=== PATIENT | male | born 1940 | race Caucasian/White ===

== ENCOUNTER 2021-06-06 09:43 | Inpatient (IN) | payer OTHER ==
[2021-06-06] VITALS (43 sets, daily range): BP systolic 83–127; BP diastolic 45–74
[~2021-06-06] VITALS: Ht 172.7 cm; Wt 90.0 kg
[2021-06-06] MEDS ORDERED: SODIUM CHLORIDE 0.9% 1,000 ML IVB ONE (10:00)
[2021-06-06 10:36] LABS: Basophils # (auto) 0.1 10 ^3/uL (0-0.2); Basophils % (auto) 0.9 % (0.0-2.0); Monocytes # (auto) 0.7 10 ^3/uL (0-1.3); Neutrophils # (auto) 6.4 10 ^3/uL (1.6-8.6); Nucleated Red Blood Cells % 0.1 %; White Blood Cell 7.8 10^3/uL (4.4-10.8)
[2021-06-06 10:38] LABS: Eosinophils # (auto) 0.2 10 ^3/uL (0-0.8); Hematocrit 18.5 % (41.0-53.0); Lymphocytes # (auto) 0.4 10 ^3/uL (0.4-5.4); Lymphocytes % (auto) 5.3 % (10.0-50.0); Mean Corpuscular Hemoglobin 28.2 pg (28.0-32.0); Mean Corpuscular Volume 88.4 fL (80.0-100.0); Monocytes % (auto) 9.5 % (0.0-12.0); Neutrophils % (auto) 82.3 % (37.0-80.0); Red Blood Cells 2.09 10^6/uL (4.5-5.90)
[2021-06-06 10:48] LABS: Hemoglobin 5.9 g/dL (13.5-17.5); Red Cell Distribution Width 20.5 % (11.8-14.3)
[2021-06-06 10:51] LABS: INR 2.56 (0.9-1.15)
[2021-06-06 10:55] LABS: BUN/Creatinine Ratio 18.6
[2021-06-06 11:03] LABS: Potassium 2.8 mmol/L (3.5-5.1)
[2021-06-06] MEDS ORDERED: MORPHINE SULFATE INJECTION 2 MG/ML SYRG IV PRN ×2 (13:15→13:45)
[2021-06-06] MEDS ORDERED: NITROGLYCERIN 0.4 MG SL TAB SL PRN (13:15)
[2021-06-06] MEDS ORDERED: SODIUM CHLORIDE 0.9% 250 ML IV ONE (13:45)
[2021-06-06] MEDS ORDERED: ACETAMINOPHEN 325 MG TAB PO PRN (13:45)
[2021-06-06] MEDS ORDERED: ONDANSETRON HCL 4 MG/2 ML VIAL IV PRN (13:45)
[2021-06-06] MEDS ORDERED: hydrALAZINE HCL 20 MG/ML VL IV PRN (13:45)
[2021-06-06] MEDS ORDERED: DOCUSATE SOD 100 MG CAP PO PRN (13:45)
[2021-06-06] MEDS ORDERED: PANTOPRAZOLE 40 MG/10 ML VIAL INJ IV ONE (13:45)
[2021-06-06] MEDS: DOBUTamine 1000MCG/ML 250 ML IV SCH (13:45)
[2021-06-06 14:27] LABS: Magnesium 2.5 mg/dL (1.6-2.6); Phosphorus 5.1 mg/dL (2.5-4.90)
[2021-06-06] MEDS: NOREPINEPHRINE 8 MG/250ML KIT 250 ML IV SCH (14:45)
[2021-06-06] MEDS: POTASSIUM CHL 20MEQ/100ML 100 ML IV SCH ×3 (15:04→21:09)
[2021-06-06] MEDS ORDERED: MAGNESIUM SULFATE 1GM/100ML 100 ML IV ONE (16:00)
[2021-06-06 16:26] LABS: INR 2.41 (0.9-1.15)
[2021-06-06 17:05] LABS: Partial Thromboplastin Time 97.8 sec (23.6-33.0)
[2021-06-06] MEDS ORDERED: INSUINJ2 SC (20:26)
[2021-06-06] MEDS ORDERED: FURO1TAB31 PO (20:26)
[2021-06-06] MEDS ORDERED: CYA100I SL (20:26)
[2021-06-06] MEDS ORDERED: FLUO-126 PO (20:26)
[2021-06-06] MEDS ORDERED: ROSU40TA PO (20:26)
[2021-06-06] MEDS ORDERED: DOCU100T15 PO (20:26)
[2021-06-06] MEDS ORDERED: MID10T PO (20:26)
[2021-06-06] MEDS ORDERED: APIX5TAB PO (20:26)
[2021-06-06] MEDS ORDERED: ALBUAER3 IN (20:26)
[2021-06-06] MEDS ORDERED: FERR-20 PO (20:26)
[2021-06-06] MEDS ORDERED: TRAZ50TA2 PO (20:26)
[2021-06-06] MEDS ORDERED: MIRT1TAB38 PO (20:26)
[2021-06-06] MEDS ORDERED: BISO5TAB44 PO (20:26)
[2021-06-06] MEDS ORDERED: NITR0.4S29 SL (20:26)
[2021-06-06] MEDS ORDERED: POTA-180 PO (20:26)
[2021-06-06] MEDS ORDERED: ACET30TA15 PO (20:26)
[2021-06-06] MEDS ORDERED: OMEP20TA PO (20:26)
[2021-06-06] MEDS ORDERED: OMNIPAQUE ORAL SOLN 500ml 12mg/ml PO ONE (21:03)
[2021-06-06] MEDS: PANTOPRAZOLE 40 MG/10 ML VIAL INJ IV SCH (21:50)
[2021-06-06] MEDS ORDERED: ATORVASTATIN 20 MG TAB PO SCH (22:00)
[2021-06-06] MEDS: HYDROcodone-ACET 5/325MG TAB PO PRN (23:19)
[2021-06-07] VITALS (84 sets, daily range): BP systolic 76–131; BP diastolic 18–81
[2021-06-07 00:34] LABS: Urine Bacteria FEW /hpf (None Seen); Urine Blood Negative /uL (Negative); Urine Hyaline Cast FEW /lpf (0 - 2); Urine Specific Gravity 1.012 (1.001-1.035); Urine WBC 2 /hpf (0 - 3)
[2021-06-07] MEDS: DOBUTamine 1000MCG/ML 250 ML IV SCH ×2 (03:17→17:49)
[2021-06-07 04:34] LABS: Basophils # (auto) 0 10 ^3/uL (0-0.2); Lymphocytes # (auto) 0.3 10 ^3/uL (0.4-5.4); Monocytes # (auto) 0.4 10 ^3/uL (0-1.3); Neutrophils # (auto) 4.6 10 ^3/uL (1.6-8.6); White Blood Cell 5.4 10^3/uL (4.4-10.8)
[2021-06-07 04:36] LABS: Basophils % (auto) 0.5 % (0.0-2.0); Eosinophils # (auto) 0.1 10 ^3/uL (0-0.8); Eosinophils % (auto) 2.4 % (0.0-7.0); Hematocrit 20.9 % (41.0-53.0); Lymphocytes % (auto) 5.3 % (10.0-50.0); Mean Corpuscular Hemoglobin 28.9 pg (28.0-32.0); Mean Corpuscular Hgb Conc. 31.8 g/dL (32.0-36.0); Mean Corpuscular Volume 90.7 fL (80.0-100.0); Monocytes % (auto) 7.9 % (0.0-12.0); Neutrophils % (auto) 83.9 % (37.0-80.0); Red Cell Distribution Width 18.9 % (11.8-14.3)
[2021-06-07 04:52] LABS: INR 1.77 (0.9-1.15); Partial Thromboplastin Time 59.5 sec (23.6-33.0)
[2021-06-07 05:16] LABS: Hemoglobin 6.7 g/dL (13.5-17.5)
[2021-06-07 05:20] LABS: BUN/Creatinine Ratio 19.9
[2021-06-07 05:21] LABS: Albumin 2.5 g/dL (3.4-5.0); Bilirubin, Total 1.3 mg/dL (0.2-1.0); Calcium 7.8 mg/dL (8.5-10.1); Magnesium 2.3 mg/dL (1.6-2.6); Total Protein 5.5 g/dL (6.4-8.2)
[2021-06-07 05:22] LABS: CRP High Sensitivity 7.96 mg/dL (< 0.3)
[2021-06-07 05:23] LABS: Potassium 2.8 mmol/L (3.5-5.1)
[2021-06-07] MEDS: POTASSIUM CHL 20MEQ/100ML 100 ML IV SCH ×2 (06:29→08:53)
[2021-06-07] MEDS: FUROSEMIDE 20 MG/2 ML VIAL IV SCH ×2 (08:15→17:53)
[2021-06-07] MEDS: PANTOPRAZOLE 40 MG/10 ML VIAL INJ IV SCH ×2 (10:29→21:19)
[2021-06-07] MEDS ORDERED: POTASSIUM CHL 20MEQ/100ML 100 ML IV ONE (10:30)
[2021-06-07] MEDS ORDERED: LIDOCAINE VISCOUS 2% 15ML UD ONE (11:01)
[2021-06-07] MEDS ORDERED: diphenhdrAMINE HCL 50 MG/1 ML VL ONE (11:02)
[2021-06-07] MEDS ORDERED: MIDAZOLAM HCL 5 MG/ML-1ML VIAL ONE (11:02)
[2021-06-07] MEDS ORDERED: fentaNYL CITRATE 100 MCG/2 ML VL ONE (11:02)
[2021-06-07 12:09] LABS: Eosinophils # (auto) 0.2 10 ^3/uL (0-0.8); Hemoglobin 7.9 g/dL (13.5-17.5); Lymphocytes # (auto) 0.3 10 ^3/uL (0.4-5.4); Mean Corpuscular Volume 87.4 fL (80.0-100.0); Monocytes # (auto) 0.6 10 ^3/uL (0-1.3); Neutrophils # (auto) 5.2 10 ^3/uL (1.6-8.6); Nucleated Red Blood Cells % 0.1 %; White Blood Cell 6.2 10^3/uL (4.4-10.8)
[2021-06-07 12:11] LABS: Basophils # (auto) 0 10 ^3/uL (0-0.2); Basophils % (auto) 0.6 % (0.0-2.0); Eosinophils % (auto) 2.7 % (0.0-7.0); Hematocrit 23.8 % (41.0-53.0); Lymphocytes % (auto) 4.4 % (10.0-50.0); Mean Corpuscular Hemoglobin 28.9 pg (28.0-32.0); Mean Corpuscular Hgb Conc. 33.1 g/dL (32.0-36.0); Monocytes % (auto) 9.4 % (0.0-12.0); Neutrophils % (auto) 82.9 % (37.0-80.0); Red Blood Cells 2.72 10^6/uL (4.5-5.90); Red Cell Distribution Width 17.8 % (11.8-14.3)
[2021-06-07 12:22] LABS: INR 1.73 (0.9-1.15)
[2021-06-07] MEDS: NOREPINEPHRINE 8 MG/250ML KIT 250 ML IV SCH (14:45)
[2021-06-07] MEDS ORDERED: DEXTROSE (50%) 50ML SYRG IV PRN (14:45)
[2021-06-07 17:16] LABS: Hemoglobin 7.7 g/dL (13.5-17.5)
[2021-06-07 17:19] LABS: Hematocrit 23.6 % (41.0-53.0)
[2021-06-07] MEDS: InsuLIN REG 1unit/0.01ml Soln (100units/ml) SC SCH ×2 (17:59→23:53)
[2021-06-07] MEDS: ACCU-CHEK COMFORT CURVE STRIP VI SCH ×2 (17:59→23:52)
[2021-06-08] VITALS (70 sets, daily range): BP systolic 81–125; BP diastolic 50–86
[2021-06-08] MEDS: DOBUTamine 1000MCG/ML 250 ML IV SCH (03:18)
[2021-06-08 04:17] LABS: Basophils # (auto) 0 10 ^3/uL (0-0.2); Eosinophils # (auto) 0.1 10 ^3/uL (0-0.8); Hemoglobin 7.5 g/dL (13.5-17.5); Mean Corpuscular Volume 87.7 fL (80.0-100.0); Monocytes # (auto) 0.3 10 ^3/uL (0-1.3); Neutrophils # (auto) 3.4 10 ^3/uL (1.6-8.6); Nucleated Red Blood Cells % 0.1 %; White Blood Cell 4.1 10^3/uL (4.4-10.8)
[2021-06-08 04:19] LABS: Basophils % (auto) 0.5 % (0.0-2.0); Eosinophils % (auto) 2.5 % (0.0-7.0); Hematocrit 22.4 % (41.0-53.0); Lymphocytes # (auto) 0.2 10 ^3/uL (0.4-5.4); Lymphocytes % (auto) 5.9 % (10.0-50.0); Mean Corpuscular Hemoglobin 29.4 pg (28.0-32.0); Mean Corpuscular Hgb Conc. 33.5 g/dL (32.0-36.0); Neutrophils % (auto) 83.1 % (37.0-80.0); Red Blood Cells 2.55 10^6/uL (4.5-5.90); Red Cell Distribution Width 17.8 % (11.8-14.3)
[2021-06-08 04:32] LABS: INR 1.54 (0.9-1.15); Partial Thromboplastin Time 55.3 sec (23.6-33.0)
[2021-06-08 04:33] LABS: BUN/Creatinine Ratio 17.1; Potassium 3.4 mmol/L (3.5-5.1)
[2021-06-08] MEDS: ACCU-CHEK COMFORT CURVE STRIP VI SCH ×3 (05:57→17:42)
[2021-06-08] MEDS: FUROSEMIDE 20 MG/2 ML VIAL IV SCH ×2 (05:57→17:52)
[2021-06-08] MEDS: InsuLIN REG 1unit/0.01ml Soln (100units/ml) SC SCH ×4 (05:57→23:48)
[2021-06-08] MEDS ORDERED: SODIUM CHLORIDE LOCK 10 ML ONE (07:42)
[2021-06-08] MEDS ORDERED: FLUMAZENIL 0.1 MG/ML INJ 10ML MDV IV ONE (07:42)
[2021-06-08] MEDS ORDERED: NALOXONE HCL 0.4 MG/ML VIAL ONE (07:42)
[2021-06-08] MEDS ORDERED: MIDAZOLAM HCL 5 MG/ML-1ML VIAL ONE (07:42)
[2021-06-08] MEDS ORDERED: LIDOCAINE VISCOUS 2% 15ML UD ONE (07:42)
[2021-06-08] MEDS ORDERED: diphenhdrAMINE HCL 50 MG/1 ML VL ONE (07:43)
[2021-06-08] MEDS ORDERED: fentaNYL CITRATE 100 MCG/2 ML VL ONE (07:43)
[2021-06-08] MEDS: PANTOPRAZOLE 40 MG/10 ML VIAL INJ IV SCH ×2 (10:19→20:55)
[2021-06-08] MEDS: NOREPINEPHRINE 8 MG/250ML KIT 250 ML IV SCH (13:44)
[2021-06-08] MEDS: HYDROcodone-ACET 5/325MG TAB PO PRN (13:45)
[2021-06-08] MEDS ORDERED: SUCRALFATE 1 GM TAB PO ONE (14:15)
[2021-06-08] MEDS ORDERED: POTASSIUM CHL 20MEQ/100ML 100 ML IV ONE (14:15)
[2021-06-08] MEDS: SUCRALFATE 1 GM TAB PO SCH ×2 (17:00→20:55)
[2021-06-09] VITALS (30 sets, daily range): BP systolic 83–113; BP diastolic 48–82
[2021-06-09] MEDS: ACCU-CHEK COMFORT CURVE STRIP VI SCH ×5 (00:18→23:59)
[2021-06-09] MEDS: HYDROcodone-ACET 5/325MG TAB PO PRN ×2 (00:25→20:13)
[2021-06-09 03:57] LABS: Basophils # (auto) 0 10 ^3/uL (0-0.2); Eosinophils # (auto) 0.1 10 ^3/uL (0-0.8); Lymphocytes # (auto) 0.3 10 ^3/uL (0.4-5.4); Monocytes # (auto) 0.4 10 ^3/uL (0-1.3); Neutrophils # (auto) 4.1 10 ^3/uL (1.6-8.6)
[2021-06-09 03:59] LABS: Basophils % (auto) 0.7 % (0.0-2.0); Eosinophils % (auto) 2.1 % (0.0-7.0); Hematocrit 22.7 % (41.0-53.0); Hemoglobin 7.4 g/dL (13.5-17.5); Lymphocytes % (auto) 5.8 % (10.0-50.0); Mean Corpuscular Hemoglobin 29.2 pg (28.0-32.0); Mean Corpuscular Hgb Conc. 32.9 g/dL (32.0-36.0); Mean Corpuscular Volume 88.9 fL (80.0-100.0); Monocytes % (auto) 8.8 % (0.0-12.0); Neutrophils % (auto) 82.6 % (37.0-80.0); Nucleated Red Blood Cells % 0.1 %; Red Blood Cells 2.55 10^6/uL (4.5-5.90); Red Cell Distribution Width 17.6 % (11.8-14.3)
[2021-06-09 04:13] LABS: BUN/Creatinine Ratio 17.5; Magnesium 2.6 mg/dL (1.6-2.6); Potassium 3.6 mmol/L (3.5-5.1)
[2021-06-09] MEDS: SUCRALFATE 1 GM TAB PO SCH ×2 (05:07→10:58)
[2021-06-09] MEDS: FUROSEMIDE 20 MG/2 ML VIAL IV SCH ×2 (05:07→18:30)
[2021-06-09] MEDS: InsuLIN REG 1unit/0.01ml Soln (100units/ml) SC SCH ×4 (05:08→23:59)
[2021-06-09] MEDS: PANTOPRAZOLE 40 MG/10 ML VIAL INJ IV SCH ×2 (10:58→21:42)
[2021-06-09] MEDS: METOPROLOL SUCCINATE XL 50 MG TAB PO SCH (10:59)
[2021-06-09] MEDS ORDERED: POTASSIUM CHL 20 Meq TABLET PO ONE (14:15)
[2021-06-09] MEDS ORDERED: FUROSEMIDE 20 MG/2 ML VIAL IV ONE (14:15)
[2021-06-09] MEDS: SUCRALFATE 1 GM/10 ML ORAL SUSP PO SCH ×2 (17:33→21:42)
[2021-06-10] VITALS (37 sets, daily range): BP systolic 73–119; BP diastolic 42–86
[2021-06-10] MEDS: ACCU-CHEK COMFORT CURVE STRIP VI SCH ×4 (05:30→23:29)
[2021-06-10] MEDS: InsuLIN REG 1unit/0.01ml Soln (100units/ml) SC SCH ×4 (05:31→23:30)
[2021-06-10 05:51] LABS: Basophils # (auto) 0.1 10 ^3/uL (0-0.2); Basophils % (auto) 1.4 % (0.0-2.0); Eosinophils # (auto) 0.2 10 ^3/uL (0-0.8); Hematocrit 25.9 % (41.0-53.0); Hemoglobin 8.7 g/dL (13.5-17.5); Lymphocytes # (auto) 0.3 10 ^3/uL (0.4-5.4); Lymphocytes % (auto) 5.9 % (10.0-50.0); Mean Corpuscular Hgb Conc. 33.7 g/dL (32.0-36.0); Mean Corpuscular Volume 89.1 fL (80.0-100.0); Monocytes # (auto) 0.5 10 ^3/uL (0-1.3); Monocytes % (auto) 8.8 % (0.0-12.0); Neutrophils # (auto) 4.2 10 ^3/uL (1.6-8.6); Neutrophils % (auto) 80.9 % (37.0-80.0); Nucleated Red Blood Cells % 0.1 %; Red Cell Distribution Width 17.1 % (11.8-14.3); White Blood Cell 5.1 10^3/uL (4.4-10.8)
[2021-06-10 05:59] LABS: BUN/Creatinine Ratio 17.4; Calcium 8.5 mg/dL (8.5-10.1); Potassium 3.3 mmol/L (3.5-5.1)
[2021-06-10] MEDS: SUCRALFATE 1 GM/10 ML ORAL SUSP PO SCH ×4 (06:30→21:36)
[2021-06-10] MEDS: METOPROLOL SUCCINATE XL 50 MG TAB PO SCH (10:00)
[2021-06-10] MEDS ORDERED: SODIUM CHLORIDE 0.9% 250 ML IV ONE ×2 (11:15→12:45)
[2021-06-10] MEDS ORDERED: POTASSIUM CHLORIDE 8 MEQ TAB PO ONE (11:15)
[2021-06-10] MEDS: PANTOPRAZOLE 40 MG/10 ML VIAL INJ IV SCH ×2 (11:35→21:36)
[2021-06-10 12:47] LABS: Hematocrit 26.4 % (41.0-53.0); Hemoglobin 8.8 g/dL (13.5-17.5)
[2021-06-10] MEDS: NOREPINEPHRINE BITARTRATE 32 MG in SODIUM CHL 0.9% 218 ML IV SCH (14:45)
[2021-06-10] MEDS ORDERED: NOREPINEPHRINE 8 MG/250 ML IV ONE (14:52)
[2021-06-10] MEDS: FUROSEMIDE 20 MG/2 ML VIAL IV SCH (17:24)
[2021-06-10] MEDS: LORazepam 0.5 MG TAB PO PRN (17:24)
[2021-06-11] VITALS (96 sets, daily range): BP systolic 67–138; BP diastolic 37–100
[2021-06-11 04:34] LABS: Basophils # (auto) 0.1 10 ^3/uL (0-0.2); Eosinophils # (auto) 0.3 10 ^3/uL (0-0.8); Eosinophils % (auto) 2.8 % (0.0-7.0); Hematocrit 27.9 % (41.0-53.0); Hemoglobin 9.4 g/dL (13.5-17.5); Lymphocytes # (auto) 0.4 10 ^3/uL (0.4-5.4); Lymphocytes % (auto) 4.8 % (10.0-50.0); Mean Corpuscular Hemoglobin 29.8 pg (28.0-32.0); Mean Corpuscular Hgb Conc. 33.6 g/dL (32.0-36.0); Mean Corpuscular Volume 88.7 fL (80.0-100.0); Monocytes % (auto) 10.5 % (0.0-12.0); Neutrophils # (auto) 7.3 10 ^3/uL (1.6-8.6); Neutrophils % (auto) 80.9 % (37.0-80.0); Red Blood Cells 3.14 10^6/uL (4.5-5.90); Red Cell Distribution Width 17.6 % (11.8-14.3); White Blood Cell 9.1 10^3/uL (4.4-10.8)
[2021-06-11 04:50] LABS: BUN/Creatinine Ratio 17.2; Calcium 8.6 mg/dL (8.5-10.1); Potassium 3.3 mmol/L (3.5-5.1)
[2021-06-11] MEDS: SUCRALFATE 1 GM/10 ML ORAL SUSP PO SCH ×4 (05:53→21:34)
[2021-06-11] MEDS: ACCU-CHEK COMFORT CURVE STRIP VI SCH ×4 (05:54→23:35)
[2021-06-11] MEDS: InsuLIN REG 1unit/0.01ml Soln (100units/ml) SC SCH ×3 (05:54→23:38)
[2021-06-11] MEDS: FUROSEMIDE 20 MG/2 ML VIAL IV SCH ×2 (05:55→17:56)
[2021-06-11] MEDS: METOPROLOL SUCCINATE XL 50 MG TAB PO SCH (10:00)
[2021-06-11] MEDS: PANTOPRAZOLE 40 MG/10 ML VIAL INJ IV SCH ×2 (10:28→21:34)
[2021-06-11] MEDS ORDERED: POTASSIUM CHL 20 Meq TABLET PO ONE (12:00)
[2021-06-11] MEDS: HYDROcodone-ACET 5/325MG TAB PO PRN (14:09)
[2021-06-11] MEDS: NOREPINEPHRINE BITARTRATE 32 MG in SODIUM CHL 0.9% 218 ML IV SCH (17:28)
[2021-06-11] MEDS: FERROUS SULFATE 325mg EC TAB PO SCH (17:56)
[2021-06-11] MEDS: MIDODRINE HCL 10 MG TAB PO SCH (17:56)
[2021-06-11] MEDS: GABAPENTIN 100 MG CAP PO SCH (21:35)
[2021-06-12] VITALS (94 sets, daily range): BP systolic 72–135; BP diastolic 40–91
[2021-06-12] MEDS: LORazepam 0.5 MG TAB PO PRN (01:10)
[2021-06-12 05:06] LABS: Basophils # (auto) 0.1 10 ^3/uL (0-0.2); Basophils % (auto) 1.1 % (0.0-2.0); Eosinophils # (auto) 0.3 10 ^3/uL (0-0.8); Eosinophils % (auto) 3.3 % (0.0-7.0); Hematocrit 28.6 % (41.0-53.0); Hemoglobin 9.3 g/dL (13.5-17.5); Lymphocytes # (auto) 0.6 10 ^3/uL (0.4-5.4); Mean Corpuscular Hgb Conc. 32.4 g/dL (32.0-36.0); Mean Corpuscular Volume 89.5 fL (80.0-100.0); Monocytes # (auto) 0.9 10 ^3/uL (0-1.3); Monocytes % (auto) 9.5 % (0.0-12.0); Neutrophils # (auto) 7.5 10 ^3/uL (1.6-8.6); Neutrophils % (auto) 80.1 % (37.0-80.0); Nucleated Red Blood Cells % 0.1 %; Red Cell Distribution Width 17.8 % (11.8-14.3); White Blood Cell 9.4 10^3/uL (4.4-10.8)
[2021-06-12 05:20] LABS: BUN/Creatinine Ratio 17.3; Calcium 8.4 mg/dL (8.5-10.1); Potassium 3.4 mmol/L (3.5-5.1)
[2021-06-12] MEDS: MIDODRINE HCL 10 MG TAB PO SCH ×2 (05:47→17:47)
[2021-06-12] MEDS: FUROSEMIDE 20 MG/2 ML VIAL IV SCH (05:47)
[2021-06-12] MEDS: ACCU-CHEK COMFORT CURVE STRIP VI SCH ×3 (05:48→17:48)
[2021-06-12] MEDS: InsuLIN REG 1unit/0.01ml Soln (100units/ml) SC SCH ×3 (05:48→17:57)
[2021-06-12] MEDS: SUCRALFATE 1 GM/10 ML ORAL SUSP PO SCH ×4 (05:48→21:27)
[2021-06-12] MEDS: METOPROLOL SUCCINATE XL 50 MG TAB PO SCH (08:37)
[2021-06-12] MEDS: FERROUS SULFATE 325mg EC TAB PO SCH ×2 (08:37→17:47)
[2021-06-12] MEDS: PANTOPRAZOLE 40 MG/10 ML VIAL INJ IV SCH ×2 (08:37→21:27)
[2021-06-12] MEDS ORDERED: BUMETANIDE 2.5mg/10ml (0.25 mg/ml) INJ IV ONE (15:00)
[2021-06-12] MEDS ORDERED: ALPRAZolam 0.25 MG TAB PO PRN (15:15)
[2021-06-12] MEDS ORDERED: POTASSIUM CHL 10 Meq TABLET PO ONE (15:15)
[2021-06-12] MEDS: NOREPINEPHRINE BITARTRATE 32 MG in SODIUM CHL 0.9% 218 ML IV SCH (15:45)
[2021-06-12] MEDS: BUMETANIDE 2.5mg/10ml (0.25 mg/ml) INJ IV SCH (17:48)
[2021-06-12] MEDS: GABAPENTIN 100 MG CAP PO SCH (21:27)
[2021-06-12] MEDS: HYDROcodone-ACET 5/325MG TAB PO PRN (21:34)
[2021-06-13] VITALS (78 sets, daily range): BP systolic 79–156; BP diastolic 42–118
[2021-06-13] MEDS: ACCU-CHEK COMFORT CURVE STRIP VI SCH ×5 (00:01→23:39)
[2021-06-13 04:30] LABS: Basophils # (auto) 0.1 10 ^3/uL (0-0.2); Eosinophils # (auto) 0.2 10 ^3/uL (0-0.8); Eosinophils % (auto) 3.3 % (0.0-7.0); Hematocrit 27.3 % (41.0-53.0); Lymphocytes # (auto) 0.5 10 ^3/uL (0.4-5.4); Lymphocytes % (auto) 6.5 % (10.0-50.0); Mean Corpuscular Hemoglobin 29.3 pg (28.0-32.0); Mean Corpuscular Volume 88.8 fL (80.0-100.0); Monocytes # (auto) 0.7 10 ^3/uL (0-1.3); Monocytes % (auto) 9.4 % (0.0-12.0); Neutrophils # (auto) 5.8 10 ^3/uL (1.6-8.6); Neutrophils % (auto) 78.8 % (37.0-80.0); Red Blood Cells 3.07 10^6/uL (4.5-5.90); Red Cell Distribution Width 17.4 % (11.8-14.3); White Blood Cell 7.4 10^3/uL (4.4-10.8)
[2021-06-13 04:49] LABS: BUN/Creatinine Ratio 17.8; Calcium 8.4 mg/dL (8.5-10.1); Potassium 3.3 mmol/L (3.5-5.1)
[2021-06-13] MEDS: MIDODRINE HCL 10 MG TAB PO SCH ×2 (05:54→17:26)
[2021-06-13] MEDS: BUMETANIDE 2.5mg/10ml (0.25 mg/ml) INJ IV SCH ×2 (05:55→17:25)
[2021-06-13] MEDS: InsuLIN REG 1unit/0.01ml Soln (100units/ml) SC SCH ×5 (06:00→23:39)
[2021-06-13] MEDS: NOREPINEPHRINE BITARTRATE 32 MG in SODIUM CHL 0.9% 218 ML IV SCH (08:15)
[2021-06-13] MEDS: SUCRALFATE 1 GM/10 ML ORAL SUSP PO SCH ×4 (08:37→21:59)
[2021-06-13] MEDS: FERROUS SULFATE 325mg EC TAB PO SCH ×2 (08:37→17:25)
[2021-06-13] MEDS: PANTOPRAZOLE 40 MG/10 ML VIAL INJ IV SCH ×2 (08:37→21:59)
[2021-06-13] MEDS ORDERED: AMIODARONE 450mg/250ml AE 250 ML IV SCH (09:15)
[2021-06-13] MEDS ORDERED: AMIODARONE HCL 150 MG in D5W 5% 100 ML IV ONE (09:15)
[2021-06-13] MEDS: METOPROLOL SUCCINATE XL 50 MG TAB PO SCH (10:00)
[2021-06-13] MEDS ORDERED: POTASSIUM CHL 20 Meq TABLET PO ONE (13:00)
[2021-06-13] MEDS: HYDROcodone-ACET 5/325MG TAB PO PRN ×2 (13:39→23:33)
[2021-06-13 13:53] LABS: INR 1.33 (0.9-1.15); Partial Thromboplastin Time 47.8 sec (23.6-33.0)
[2021-06-13] MEDS: AMIODARONE 450mg/250ml AE 250 ML IV SCH (15:17)
[2021-06-13] MEDS: GABAPENTIN 100 MG CAP PO SCH (21:59)
[2021-06-14] VITALS (79 sets, daily range): BP systolic 80–133; BP diastolic 38–85
[2021-06-14 04:04] LABS: Basophils # (auto) 0.1 10 ^3/uL (0-0.2); Basophils % (auto) 1.9 % (0.0-2.0); Eosinophils # (auto) 0.2 10 ^3/uL (0-0.8); Eosinophils % (auto) 3.7 % (0.0-7.0); Hematocrit 25.8 % (41.0-53.0); Hemoglobin 8.7 g/dL (13.5-17.5); Lymphocytes # (auto) 0.4 10 ^3/uL (0.4-5.4); Lymphocytes % (auto) 8.9 % (10.0-50.0); Mean Corpuscular Hemoglobin 29.6 pg (28.0-32.0); Mean Corpuscular Hgb Conc. 33.8 g/dL (32.0-36.0); Mean Corpuscular Volume 87.7 fL (80.0-100.0); Monocytes # (auto) 0.5 10 ^3/uL (0-1.3); Monocytes % (auto) 10.3 % (0.0-12.0); Neutrophils # (auto) 3.7 10 ^3/uL (1.6-8.6); Neutrophils % (auto) 75.2 % (37.0-80.0); Nucleated Red Blood Cells % 0.1 %; Red Blood Cells 2.94 10^6/uL (4.5-5.90); Red Cell Distribution Width 17.2 % (11.8-14.3); White Blood Cell 4.9 10^3/uL (4.4-10.8)
[2021-06-14 04:25] LABS: Calcium 8.5 mg/dL (8.5-10.1); Magnesium 2.5 mg/dL (1.6-2.6); Potassium 3.7 mmol/L (3.5-5.1)
[2021-06-14] MEDS: InsuLIN REG 1unit/0.01ml Soln (100units/ml) SC SCH ×3 (05:49→18:42)
[2021-06-14] MEDS: ACCU-CHEK COMFORT CURVE STRIP VI SCH ×3 (05:49→18:41)
[2021-06-14] MEDS: MIDODRINE HCL 10 MG TAB PO SCH ×2 (05:50→18:41)
[2021-06-14] MEDS: BUMETANIDE 2.5mg/10ml (0.25 mg/ml) INJ IV SCH (05:50)
[2021-06-14] MEDS: HYDROcodone-ACET 5/325MG TAB PO PRN ×2 (05:51→11:43)
[2021-06-14] MEDS: AMIODARONE 450mg/250ml AE 250 ML IV SCH ×2 (06:15→13:20)
[2021-06-14] MEDS: NOREPINEPHRINE BITARTRATE 32 MG in SODIUM CHL 0.9% 218 ML IV SCH (08:15)
[2021-06-14] MEDS: FERROUS SULFATE 325mg EC TAB PO SCH ×2 (08:40→18:41)
[2021-06-14] MEDS: SUCRALFATE 1 GM/10 ML ORAL SUSP PO SCH ×4 (08:40→21:19)
[2021-06-14] MEDS: METOPROLOL SUCCINATE XL 50 MG TAB PO SCH (10:00)
[2021-06-14] MEDS: PANTOPRAZOLE 40 MG/10 ML VIAL INJ IV SCH ×2 (10:31→21:18)
[2021-06-14] MEDS: ALBUMIN 25% 100 ML IV SCH ×2 (10:32→18:40)
[2021-06-14] MEDS ORDERED: ALBUTEROL SULF 2.5 MG/0.5ML(0.5%) NEB SOLN ONE (20:16)
[2021-06-14] MEDS ORDERED: ALBUTEROL SULF 2.5 MG/0.5ML(0.5%) NEB SOLN NEB ONE (20:30)
[2021-06-14] MEDS: GABAPENTIN 100 MG CAP PO SCH (21:19)
[2021-06-15] VITALS (9 sets, daily range): BP systolic 89–103; BP diastolic 48–67
[2021-06-15] MEDS: HYDROcodone-ACET 5/325MG TAB PO PRN (00:29)
[2021-06-15] MEDS: ACCU-CHEK COMFORT CURVE STRIP VI SCH (01:09)
[2021-06-15] MEDS: InsuLIN REG 1unit/0.01ml Soln (100units/ml) SC SCH (01:09)
[2021-06-15] MEDS: ALBUMIN 25% 100 ML IV SCH (01:46)
[2021-06-15 03:39] LABS: Basophils # (auto) 0 10 ^3/uL (0-0.2); Eosinophils # (auto) 0.2 10 ^3/uL (0-0.8); Lymphocytes # (auto) 0.3 10 ^3/uL (0.4-5.4); Monocytes # (auto) 0.4 10 ^3/uL (0-1.3)
[2021-06-15 03:41] LABS: Basophils % (auto) 0.8 % (0.0-2.0); Eosinophils % (auto) 3.1 % (0.0-7.0); Hemoglobin 8.4 g/dL (13.5-17.5); Lymphocytes % (auto) 5.5 % (10.0-50.0); Mean Corpuscular Hgb Conc. 33.7 g/dL (32.0-36.0); Mean Corpuscular Volume 88.9 fL (80.0-100.0); Monocytes % (auto) 6.8 % (0.0-12.0); Neutrophils # (auto) 4.7 10 ^3/uL (1.6-8.6); Neutrophils % (auto) 83.8 % (37.0-80.0); Red Blood Cells 2.82 10^6/uL (4.5-5.90); Red Cell Distribution Width 17.4 % (11.8-14.3); White Blood Cell 5.6 10^3/uL (4.4-10.8)
[2021-06-15 03:48] LABS: Calcium 8.8 mg/dL (8.5-10.1); Potassium 4.1 mmol/L (3.5-5.1)
[2021-06-15] MEDS: MIDODRINE HCL 10 MG TAB PO SCH (05:24)
== END 2021-06-15 07:00 | disposition short-term general hospital (02) | DRG 377 ==
LOC: EDBD 09:43 → ER 09:43 → ICU WEST 13:05
PROVIDERS: ADMIT Hospitalist; ATTEND Internal Medicine
PROC: 05HC33Z Insertion of Infusion Device into Left Basilic Vein, Percutaneous Approach (ICD-10-PCS; principal; 2021-06-06)
PROC: B54NZZA Ultrasonography of Left Upper Extremity Veins, Guidance (ICD-10-PCS; 2021-06-06)
PROC: 30233N1 Transfusion of Nonautologous Red Blood Cells into Peripheral Vein, Percutaneous Approach (ICD-10-PCS; 2021-06-06)
PROC: 30233K1 Transfusion of Nonautologous Frozen Plasma into Peripheral Vein, Percutaneous Approach (ICD-10-PCS; 2021-06-06)
PROC: 0DB98ZX Excision of Duodenum, Via Natural or Artificial Opening Endoscopic, Diagnostic (ICD-10-PCS; 2021-06-08)
PROC: 0DB68ZX Excision of Stomach, Via Natural or Artificial Opening Endoscopic, Diagnostic (ICD-10-PCS; 2021-06-08)
DX: K29.71 Gastritis, unspecified, with bleeding (principal); R57.1 Hypovolemic shock; N17.0 Acute kidney failure with tubular necrosis; I50.43 Acute on chronic combined systolic (congestive) and diastolic (congestive) heart failure; J96.20 Acute and chronic respiratory failure, unspecified whether with hypoxia or hypercapnia; R57.0 Cardiogenic shock; I13.0 Hypertensive heart and chronic kidney disease with heart failure and stage 1 through stage 4 chronic kidney disease, or unspecified chronic kidney disease; D62 Acute posthemorrhagic anemia; D68.9 Coagulation defect, unspecified; D68.69 Other thrombophilia; N18.4 Chronic kidney disease, stage 4 (severe); I42.7 Cardiomyopathy due to drug and external agent; Z20.822 Contact with and (suspected) exposure to COVID-19; K31.811 Angiodysplasia of stomach and duodenum with bleeding; E78.5 Hyperlipidemia, unspecified; E87.6 Hypokalemia; I25.10 Atherosclerotic heart disease of native coronary artery without angina pectoris; I27.20 Pulmonary hypertension, unspecified; K31.9 Disease of stomach and duodenum, unspecified; K44.9 Diaphragmatic hernia without obstruction or gangrene; E66.9 Obesity, unspecified; H91.91 Unspecified hearing loss, right ear; J44.9 Chronic obstructive pulmonary disease, unspecified; I48.91 Unspecified atrial fibrillation; E11.9 Type 2 diabetes mellitus without complications; T50.995A Adverse effect of other drugs, medicaments and biological substances, initial encounter; I36.1 Nonrheumatic tricuspid (valve) insufficiency; Z86.16 Personal history of COVID-19; Z68.29 Body mass index [BMI] 29.0-29.9, adult; Z99.81 Dependence on supplemental oxygen; Z95.1 Presence of aortocoronary bypass graft; Y92.89 Other specified places as the place of occurrence of the external cause; Z79.84 Long term (current) use of oral hypoglycemic drugs
CPT/HCPCS: 36415; 36600; 71045; 71250; 74176; 76775; 80048; 80053; 80061; 81001; 82270; 82570; 82728; 82805; 82962; 83036; 83615; 83690; 83735; 83880; 83970; 84100; 84156; 84300; 84443; 84484; 85014; 85018; 85025; 85379; 85610; 85652; 85730; 86141; 86850; 86900; 86901; 86920; 87040; 87081; 87086; 93005; 93306; 93971; 94640; 96361; 96374; C9113; G0378; J1815; J2250; J3480; J7060; P9047